=== PATIENT | female | born 1980 | race Caucasian/White ===

== ENCOUNTER 2017-03-13 21:05 | Emergency (ER) | payer MEDICAID ==
[~2017-03-13 21:05] MED LIST: ADVIL200 M1 PO; CARBATROL300 MG PO; DORYX100 MG PO; GLUCOPHAGE1000 MG PO; GLUCOPHAGE500 M3 PO; KEPPRA XR750 MG PO; KEPPRA1000 MG; KLONOPIN0.5 M1 PO; LEVAQUIN750 MG PO; MAALOX SUSPENSI30 ML PO; MICROGESTIN PO; MOTRIN800 MG PO; OMEPRAZOLE20 M2 PO; OMEPRAZOLE40 M2 PO; OMEPRAZOLE40 MG PO; PEPCID20 MG PO; PERCOCET 5/3251 TAB PO; PRILOSEC20 MG PO; PROCTOFOAM-HC 110 G1 RC; TUMS500 M1 PO; TYLENOL325 MG PO; ZOFRAN4 MG PO
[2017-03-13] MEDS ORDERED: LEXAPRO10 M2 PO (22:04)
[2017-03-13] MEDS ORDERED: BIOTIN5 M3 PO (22:05)
[2017-03-13] MEDS ORDERED: SUPER B COMPLE150 M1 PO (22:05)
[2017-03-13] MEDS ORDERED: ALDACTONE25 M1 PO (22:05)
[2017-03-13 22:54] LABS: BASO % 0.3 % (0-2); EOS % 1.8 % (0-7); EOSINOPHIL ABSOLUTE COUNT 0.2 tho/cmm (0.0-0.7); HGB-HEMOGLOBIN 12.7 gm/dl (12.0-15.5); IMMATURE GRANULOCYTES ABSOLUTE 0.02 tho/cmm (0-0.03); IMMATURE GRANULOCYTES PERCENT 0.2 % (0-0.3); LYMPH ABSOLUTE COUNT 2.2 tho/cmm (0.8-4.5); MCH (MEAN CORPUSCULAR HGB) 30.6 pg (28.0-32.0); MCHC MEAN CORPUSCULAR HGB CONC 34.3 % (32.0-36.0); MCV (MEAN CELL VOLUME) 89.2 fl (82.0-96.0); MEAN PLATELET VOLUME 9.6 cmc (9.4-12.4); MONOCYTE ABSOLUTE COUNT 1.3 tho/cmm (0.0-1.2); NEUTROPHIL ABSOLUTE COUNT 7.7 tho/cmm (1.6-8.0); NEUTROPHIL-AUTOMATED 7.7 tho/cmm (1.6-8.0); NEUTROPHILS % 67.7 % (40-80); PLATELET COUNT 602 tho/cmm (150-450); RED BLOOD COUNT 4.15 mil/cmm (4.00-5.20); RED CELL DISTRIBUTION WIDTH 12.5 % (12.4-16.4); WHITE BLOOD COUNT 11.4 tho/cmm (4.0-10.0)
[2017-03-13 23:01] LABS: PREGNANCY-SERUM NEGATIVE (NEGATIVE)
[2017-03-13 23:02] LABS: ANION GAP 12 mmol/L (0-20); BLOOD UREA NITROGEN 4 mg/dl (6-24); CALCIUM 8.9 mg/dl (8.5-10.5); CARBON DIOXIDE-VENOUS 29 mmol/L (22-32); CHLORIDE 99 mmol/l (96-110); CREATININE 0.64 mg/dl (0.50-1.10); GLUCOSE 105 mg/dL (70-110); SODIUM 136 mmol/L (135-145); eGFR VALUE FOR BLACK >90 mL/Min
[2017-03-13 23:12] LABS: POTASSIUM 3.5 mmol/L (3.7-5.1)
[2017-03-14] MEDS ORDERED: LEVAQUIN750 M1 PO (00:49)
[2017-03-14] MEDS ORDERED: NORCO 5-325 TA1 EACH PO (00:49)
== END 2017-03-14 01:12 ==
LOC: EDMED 21:05
PROVIDERS: Emergency Medicine
DX: J18.1 Lobar pneumonia, unspecified organism (principal); R91.1 Solitary pulmonary nodule; G40.909 Epilepsy, unspecified, not intractable, without status epilepticus; Z79.899 Other long term (current) drug therapy; Z90.49 Acquired absence of other specified parts of digestive tract
CPT/HCPCS: J1885; J7030; Q9967